=== PATIENT | female | born 1980 | race Caucasian/White ===

== ENCOUNTER 2019-01-02 20:04 | Emergency (ER) | payer OTHER ==
[2019-01-02] MEDS ORDERED: KETOROLAC 30 MG/ML INJ ONE (21:32)
[2019-01-02] MEDS ORDERED: DIPHENHYDRAMINE 50 MG/ML VIAL ONE (21:32)
[2019-01-02] MEDS ORDERED: METOCLOPRAMIDE 10 MG/2mL INJ ONE (21:32)
[2019-01-02] MEDS ORDERED: dexAMETHasone 10 MG/ML VIAL ONE (21:32)
[2019-01-02] MEDS ORDERED: NA CHLORIDE 0.9% 1,000 ML ONE (21:32)
[2019-01-02 21:34] LABS: Absolute Lymphocytes (CBC) 1.8 K/uL (0.7-4.9); Basophils % 0.6 % (0-1.3); Hematocrit 44.5 % (36.0-45.0); Lymphocytes % 22.3 % (15.3-44.8); MPV 8.6 fL (7.6-11.3); Monocytes % 7.3 % (3.3-12.3)
[2019-01-02 21:47] LABS: Potassium 4.3 mmol/L (3.5-5.1)
[2019-01-02 22:20] LABS: Urine Blood NEGATIVE (NEG); Urine Glucose NEGATIVE (NEG); Urine Protein 1+ (NEG)
[2019-01-02 22:28] LABS: Urine Bacteria 20-50 /HPF (<20); Urine RBC <5 /HPF (NONE SEEN)
[2019-01-02 22:29] LABS: Urine Culture Reflex Order REFLEXED; Urine Mucus 2+ /HPF (NONE SEEN)
--- NOTE | 2019-01-02 23:11 | EDPHYS ---
Physician Documentation [facility] Name: Alba Bah Age: 38 yrs Sex: Female : 1980 Arrival Date: 01/02/2019 Time: 20:20 Bed 13 Private MD: ED Physician David Rosales HPI: 01/02 21:10 This 38 yrs old Female presents to ER via Ambulatory with complaints of cp headache. 21:10 The patient complains of pain to the top of head and forehead. cp 21:10 The patient describes the headache as a pressure, throbbing. cp 21:10 Onset: The symptoms/episode began/occurred 2 day(s) ago. Associated signs and symptoms: cp Pertinent positives: Photophobia Pertinent negatives: altered mental status, dizziness, fever, neck stiffness, sinus congestion, sinus tenderness, vomiting, weakness. Severity of symptoms: in the emergency department the pain a " 8" out of "10". Headache History: Denies prior headaches. Historical: - Allergies: 20:21 No Known Allergies; jb4 - Home Meds: 20:21 None [Active]; jb4 - PMHx: 20:21 Hypertension; jb4 - PSHx: 20:21 Tubal ligation; jb4 - Immunization history:: Adult Immunizations up to date. - Social history:: Smoking status: Patient uses tobacco products, smokes one-half pack cigarettes per day, Patient/guardian denies using alcohol. - Ebola Screening: : No symptoms or risks identified at this time. ROS: 21:15 Constitutional: Negative for body aches, chills, fever, poor PO intake. cp 21:15 Eyes: Positive for photophobia, Negative for discharge, redness. cp 21:15 ENT: Negative for drainage from ear(s), ear pain, sore throat, difficulty swallowing, difficulty handling secretions. 21:15 Neck: Negative for pain with movement, pain at rest, stiffness. 21:15 Cardiovascular: Negative for chest pain. 21:15 Respiratory: Negative for cough, shortness of breath, wheezing. 21:15 Abdomen/GI: Negative for abdominal pain, vomiting, diarrhea, constipation. 21:15 Skin: Negative for rash. 21:15 Neuro: Positive for headache, Negative for altered mental status, dizziness, weakness. 21:15 All other systems are negative. Exam: 21:25 Constitutional: The patient appears in no acute distress, alert, awake, non-toxic, well cp developed, well nourished. 21:25 Head/Face: Normocephalic, atraumatic. Eyes: Pupils equal round and reactive to light, cp extra-ocular motions intact. Lids and lashes normal. Conjunctiva and sclera are non-icteric and not injected. Cornea within normal limits. Periorbital areas with no swelling, redness, or edema. ENT: Nares patent. No nasal discharge, no septal abnormalities noted. Tympanic membranes are normal and external auditory canals are clear. Oropharynx with no redness, swelling, or masses, exudates, or evidence of obstruction, uvula midline. Mucous membranes moist. Neck: Trachea midline, no thyromegaly or masses palpated, and no cervical lymphadenopathy. Supple, full range of motion without nuchal rigidity, or vertebral point tenderness. No Meningismus. Chest/axilla: Normal chest wall appearance and motion. Nontender with no deformity. No lesions are appreciated. 21:25 Cardiovascular: Rate: normal, Rhythm: regular. 21:25 Respiratory: the patient does not display signs of respiratory distress, Respirations: normal, no use of accessory muscles, no retractions, no splinting, no tachypnea, labored breathing, is not present, Breath sounds: are clear throughout, no decreased breath sounds, no stridor, no wheezing. 21:25 Abdomen/GI: Inspection: abdomen appears normal, Palpation: abdomen is soft and non-tender, in all quadrants. 21:25 Skin: no rash present. 21:25 Neuro: Orientation: to person, place \\T\\ time. Mentation: is normal, Cerebellar function: is grossly normal, Motor: moves all fours, strength is normal, Sensation: is normal. Vital Signs: 20:21 BP 121 / 81; Pulse 87; Resp 16; Pulse Ox 97% on R/A; Weight 81.65 kg (R); Height 5 ft. jb4 4 in. (162.56 cm) (R); Pain 8/10; 22:55 BP 114 / 79; Pulse 71; Resp 16; Temp 98.6(O); Pulse Ox 97% on R/A; jb4 23:15 BP 111 / 78; Pulse 72; Resp 16; Pulse Ox 97% on R/A; jb4 20:21 Body Mass Index 30.90 (81.65 kg, 162.56 cm) jb4 MDM: 20:49 Patient medically screened. cp 22:00 Differential diagnosis: meningitis, meningoencephalitis, migraine, sinusitis, subdural cp hematoma, tension headache, trigeminal neuralgia. 23:08 Data reviewed: vital signs, nurses notes, lab test result(s), radiologic studies, CT cp scan, and as a result, I will discharge patient. Response to treatment: the patient's symptoms have markedly improved after treatment, VSS. Patient reports headache improved, and as a result, I will discharge patient. 01/02 21:00 Order name: Urine Microscopic Only; Complete Time: 22:34 cp 01/02 22:34 Interpretation: Normal except: UBACT 20-50; SQEPI 10-20. cp 01/02 21:05 Order name: CBC with Diff; Complete Time: 22:22 cp 01/02 22:22 Interpretation: Normal except: MCV 94.7. cp 01/02 21:05 Order name: BMP; Complete Time: 22:22 cp 01/02 22:23 Interpretation: Normal except: GFR 73. cp 01/02 21:05 Order name: PT-INR; Complete Time: 22:22 cp 01/02 22:11 Order name: Urine Dipstick--Ancillary (enter results); Complete Time: 22:22 ar5 01/02 22:11 Order name: Urine --Ancillary (enter results); Complete Time: 22:22 tx5 01/02 21:00 Order name: CT Head Brain wo Cont cp 01/02 21:00 Order name: Urine Dipstick-Ancillary (obtain specimen); Complete Time: 22:25 cp 01/02 22:41 Order name: Urine Culture EDMS 01/02 21:05 Order name: IV; Complete Time: 21:26 cp 01/02 22:51 Order name: Vital Signs: please update to include temp; Complete Time: 22:55 cp Administered Medications: 21:40 Drug: Benadryl 25 mg Route: IVP; Site: right antecubital; jb4 23:19 Follow up: Response: No adverse reaction jb4 21:41 Drug: Reglan 10 mg Route: IVP; Site: right antecubital; jb4 23:19 Follow up: Response: No adverse reaction jb4 21:43 Drug: NS 0.9% 1000 ml Route: IV; Rate: 1 bolus; Site: right antecubital; jb4 22:40 Follow up: Response: No adverse reaction; IV Status: Completed infusion; IV Intake: jb4 1000ml 22:00 Drug: TORadol - Ketorolac 15 mg Route: IVP; Site: right antecubital; jb4 22:30 Follow up: Response: No adverse reaction; Pain is decreased jb4 22:01 Drug: Decadron - Dexamethasone 10 mg Route: IVP; Site: right antecubital; jb4 23:19 Follow up: Response: No adverse reaction jb4 Disposition: 23:45 Chart complete. cp Disposition: 01/02/19 23:10 Discharged to Home. Impression: Headache. - Condition is Stable. - Discharge Instructions: General Headache Without Cause. - Prescriptions for Fiorinal 50- 325-40 mg Oral Capsule - take 1 capsule by ORAL route every 4 hours As needed - not to exceed 6 capsules per day; 20 capsule. Ibuprofen 800 mg Oral Tablet - take 1 tablet by ORAL route every 8 hours As needed take with food; 30 tablet. Zofran 4 mg Oral Tablet - take 1 tablet by ORAL route every 12 hours As needed; 20 tablet. - Medication Reconciliation Form, Thank You Letter, Antibiotic Education, Prescription Opioid Use form. - Follow up: Shawn Fan MD; When: 2 - 3 days; Reason: headaches continue. - Problem is new. - Symptoms have improved. Addendum: 01/07/2019 19:21 Co-signature as Attending Physician, David Rosales MD. g s Signatures: Dispatcher [employer] EDKS Juan Lazar PA PA cp Bryson, James, RN RN jbDavid Valderrama MD MD gs Corrections: (The following items were deleted from the chart) 01/02 20:34 20:21 PSHx: None; jb4 jb4 21:27 21:01 UA MICROSCOPIC+U.LAB.BRZ ordered. EDKS EDKS 21:28 21:00 Urine Test ordered. cp jp3 23:35 23:10 01/02/2019 23:10 Discharged to Home. Impression: Headache. Condition is Stable. jb4 Forms are Medication Reconciliation Form, Thank You Letter, Antibiotic Education, Prescription Opioid Use. Follow up: Shawn Fan; When: 2 - 3 days; Reason: headaches continue. Problem is new. Symptoms have improved. cp 01/03 19:06 07 20:05 This 38 yrs old Female presents to ER via Ambulatory with cp complaints of headache. cp
--- NOTE | 2019-01-02 23:11 | ER ---
Nurse's Notes [facility] Name: Alba Bah Age: 38 yrs Sex: Female : 1980 Arrival Date: 01/02/2019 Time: 20:20 Bed 13 Private MD: Diagnosis: Headache Presentation: 01/02 20:21 Presenting complaint: Patient states: I have a headache that started Monday and this is jb4 the worst it has ever been. 20:21 Transition of care: patient was not received from another setting of care. Onset of jb4 symptoms was December 31, 2018. Risk Assessment: Do you want to hurt yourself or someone else? Patient reports no desire to harm self or others. Initial Sepsis Screen: Does the patient meet any 2 criteria? No. Patient's initial sepsis screen is negative. Does the patient have a suspected source of infection? No. Patient's initial sepsis screen is negative. Care prior to arrival: None. 20:21 Method Of Arrival: Ambulatory jb4 20:21 Acuity: [id number] 4 jb4 Triage Assessment: 20:21 General: Appears in no apparent distress. uncomfortable, Behavior is calm, cooperative, jb4 appropriate for age, Pt reports having a headache that is not like any other, "this is the worst I have ever had. Normally I can take Advil and it will go away, but this time I took Tylenol with Codeine around 4pm and it still has not gotten better.". Pain: Complains of pain in headache Pain does not radiate. Pain currently is 8 out of 10 on a pain scale. Quality of pain is described as pressure, throbbing, Pain began 2-3 days ago. EENT: No signs and/or symptoms were reported regarding the EENT system. Neuro: Level of Consciousness is awake, alert, obeys commands, Oriented to person, place, time, situation. Cardiovascular: Patient's skin is warm and dry. Respiratory: Airway is patent Respiratory effort is even, unlabored, Respiratory pattern is regular, symmetrical. GI: No signs and/or symptoms were reported involving the gastrointestinal system. : No signs and/or symptoms were reported regarding the genitourinary system. Derm: Skin is intact, Skin is pink, warm \\T\\ dry. Musculoskeletal: Circulation, motion, and sensation intact. Historical: - Allergies: 20:21 No Known Allergies; jb4 - Home Meds: 20:21 None [Active]; jb4 - PMHx: 20:21 Hypertension; jb4 - PSHx: 20:21 Tubal ligation; jb4 - Immunization history:: Adult Immunizations up to date. - Social history:: Smoking status: Patient uses tobacco products, smokes one-half pack cigarettes per day, Patient/guardian denies using alcohol. - Ebola Screening: : No symptoms or risks identified at this time. Screenin:21 Abuse screen: Denies threats or abuse. Nutritional screening: No deficits noted. jb4 Tuberculosis screening: No symptoms or risk factors identified. Fall Risk None identified. Assessment: 20:21 General: see triage assessment.. jb4 21:30 Reassessment: Patient appears in no apparent distress at this time. Patient and/or jb4 family updated on plan of care and expected duration. Pain level reassessed. Patient is alert, oriented x 3, equal unlabored respirations, skin warm/dry/pink. 22:57 Reassessment: Patient appears in no apparent distress at this time. Patient and/or jb4 family updated on plan of care and expected duration. Pain level reassessed. Patient is alert, oriented x 3, equal unlabored respirations, skin warm/dry/pink. Patient states feeling better. Patient states symptoms have improved. 23:31 Reassessment: Patient appears in no apparent distress at this time. Patient and/or jb4 family updated on plan of care and expected duration. Pain level reassessed. Patient is alert, oriented x 3, equal unlabored respirations, skin warm/dry/pink. Pt ambulated out of ED with steady gait, verbalized understanding of d/c and follow up instructions. Patient states feeling better. Patient states symptoms have improved. Vital Signs: 20:21 BP 121 / 81; Pulse 87; Resp 16; Pulse Ox 97% on R/A; Weight 81.65 kg (R); Height 5 ft. jb4 4 in. (162.56 cm) (R); Pain 8/10; 22:55 BP 114 / 79; Pulse 71; Resp 16; Temp 98.6(O); Pulse Ox 97% on R/A; jb4 23:15 BP 111 / 78; Pulse 72; Resp 16; Pulse Ox 97% on R/A; jb4 20:21 Body Mass Index 30.90 (81.65 kg, 162.56 cm) jb4 ED Course: 20:20 Patient arrived in ED. bb 20:21 Arm band placed on left wrist. jb4 20:27 Luis Carlos Carroll, ODESSA is Primary Nurse. jb4 20:28 Juan Lazar PA is PHCP. cp 20:28 David Rosales MD is Attending Physician. cp 20:29 Triage completed. jb4 21:20 Initial lab(s) drawn, by me, sent to lab. Inserted saline lock: 20 gauge in right jp3 antecubital area, using aseptic technique. Blood collected. Patient maintains SpO2 saturation greater than 95% on room air. 21:25 Placed in gown. Bed in low position. Call light in reach. Side rails up X 1. Warm jp3 blanket given. Verbal reassurance given. Pulse ox on. NIBP on. 21:26 PT-INR Sent. jp3 21:26 BMP Sent. jp3 21:53 CT Head Brain wo Cont In Process Unspecified. EDMS 23:09 Shawn Fan MD is Referral Physician. cp 23:32 No provider procedures requiring assistance completed. IV discontinued, intact, jb4 bleeding controlled, No redness/swelling at site. Administered Medications: 21:40 Drug: Benadryl 25 mg Route: IVP; Site: right antecubital; jb4 23:19 Follow up: Response: No adverse reaction jb4 21:41 Drug: Reglan 10 mg Route: IVP; Site: right antecubital; jb4 23:19 Follow up: Response: No adverse reaction jb4 21:43 Drug: NS 0.9% 1000 ml Route: IV; Rate: 1 bolus; Site: right antecubital; jb4 22:40 Follow up: Response: No adverse reaction; IV Status: Completed infusion; IV Intake: jb4 1000ml 22:00 Drug: TORadol - Ketorolac 15 mg Route: IVP; Site: right antecubital; jb4 22:30 Follow up: Response: No adverse reaction; Pain is decreased jb4 22:01 Drug: Decadron - Dexamethasone 10 mg Route: IVP; Site: right antecubital; jb4 23:19 Follow up: Response: No adverse reaction jb4 Intake: 22:40 IV: 1000ml; Total: 1000ml. jb4 Outcome: 23:10 Discharge ordered by . cp 23:32 Discharged to home ambulatory, with family. jb4 23:32 Condition: stable 23:32 Discharge instructions given to patient, Instructed on discharge instructions, follow up and referral plans. medication usage, Demonstrated understanding of instructions, follow-up care, medications, Prescriptions given X 3. 23:35 Patient left the ED. jb4 Signatures: Dispatcher [employer] EDMS Radha Burk RN RN Juan Perez PA PA cp Bryson, James, RN RN jb4 Julius Montez jp3 Corrections: (The following items were deleted from the chart) 20:34 20:21 PSHx: None; jb4 jb4 21:27 21:26 UA MICROSCOPIC+U.LAB.BRZ drawn and sent. jp3 EDMD 23:34 23:31 Reassessment: Patient appears in no apparent distress at this time. Patient jb4 and/or family updated on plan of care and expected duration. Pain level reassessed. Patient is alert, oriented x 3, equal unlabored respirations, skin warm/dry/pink. Patient states feeling better. Patient states symptoms have improved. jb4
[2019-01-03 00:50] VITALS: O2SAT 97
[2019-01-03 00:51] VITALS: TEMP 98.6
[2019-01-03 00:56] VITALS: BP 111/78
--- NOTE | 2019-01-04 09:37 | RAD REPORT ---
EXAM DESCRIPTION: CT - Head Brain Wo Cont - 01/03/2019 2:30 am CLINICAL HISTORY: 38 years Female, HEADACHE TECHNIQUE: 5 mm axial images were obtained along with 3 mm reformatted coronal and sagittal images. This exam was performed according to our departmental dose-optimization program, which includes autom ated exposure control, adjustment of the mA and/or kV according to patient size and/or use of iterati ve reconstruction technique. COMPARISON: None. FINDINGS: No acute abnormal extracerebral fluid collections are demonstrated. The cortical sulci, ventricles, and cisterns are within normal limits. There are no areas of altered attenuation identified to suggest acute hemorrhage, infarction, or mass lesion. The visualized portions of the paranasal sinuses and mastoid air cells are clear. IMPRESSION: 1. Normal study. Electronically signed by: Win Carrion MD 01/02/2019 9:58 PM CDT Due to temporary technical issues with the PACS/Fluency reporting system, reports are being signed by the in house radiologist as a courtesy to ensure prompt reporting. The interpreting radiologist is f ully responsible for the content of the report.
== END 2019-01-02 23:35 | disposition home or self-care (01) ==
LOC: ER 20:04
DX: R51 Headache (principal); I10 Essential (primary) hypertension; F17.210 Nicotine dependence, cigarettes, uncomplicated
CPT/HCPCS: 36415; 70450; 80048; 81003; 81015; 81025; 85025; 85610; 87086; 87088; 96361; 96374; 96375; 99284; J1100; J2765; J7030